=== PATIENT | female | born 1990 | race Caucasian/White ===

== ENCOUNTER 2018-12-27 14:49 | Emergency (ER) | payer OTHER ==
[~2018-12-27] VITALS: Ht 162.6 cm; Wt 63.0 kg
[2018-12-27] MEDS ORDERED: PEPCID20 MG PO (16:14)
[2018-12-27] MEDS ORDERED: MEDROLDOSEPACK PO (16:14)
[2018-12-27] MEDS ORDERED: BENADRYL25 MG PO (16:14)
[2018-12-27] MEDS ORDERED: EPIPEN 2-P0.3 MG/0.3 IM (16:15)
[2018-12-27 16:28] VITALS: BP 120/76
== END 2018-12-27 16:29 | disposition home or self-care (01) ==
LOC: M.ERS 14:49
DX: L29.9 Pruritus, unspecified (principal); T63.461A Toxic effect of venom of wasps, accidental (unintentional), initial encounter; Z91.030 Bee allergy status; Y92.89 Other specified places as the place of occurrence of the external cause